=== PATIENT | female | born 1955 | race Caucasian/White ===

== ENCOUNTER → 2022-08-26 | Outpatient (CLI) | payer MEDICARE, BC ==
[~2022-08-26] MED LIST: ATOR1TAB19 PO; CO Q200C10 PO; ECHI125T PO; ESTR3TA PO; JANU50TA8 PO; LISI20TA35 PO; OYST500T8 PO; PRES10CA2 PO; TOLT4CAP3 PO; VITMTA PO
== END ==
LOC: M LABSMTC 10:14
PROVIDERS: ATTEND Anesthesiology
DX: Z01.812 Encounter for preprocedural laboratory examination (principal)

== ENCOUNTER 2022-08-31 08:43 | Day surgery (SDC) | payer MEDICARE, BC ==
[~2022-08-31] VITALS: Ht 167.6 cm; Wt 78.8 kg
[~2022-08-31 08:43] MED LIST changes: +NS 1,000 ML IV ONE
[2022-08-31] MEDS ORDERED: ESTR1TAB PO (09:19)
[2022-08-31] MEDS ORDERED: DITR1TAB PO (09:19)
[2022-08-31] MEDS ORDERED: ARED (09:19)
[2022-08-31] MEDS ORDERED: LIDOCAINE 2% 100MG/5ML SDV (FOR ANES.) As Ordered ONE (09:42)
[2022-08-31] MEDS ORDERED: propofoL 200 MG/20 ML VIAL As Ordered ONE (09:42)
[2022-08-31 11:30] VITALS: BP 197/87
== END 2022-08-31 11:47 | disposition home or self-care (01) ==
LOC: M OPP 08:43
PROVIDERS: ATTEND Internal Medicine Gastroenterology
DX: Z12.11 Encounter for screening for malignant neoplasm of colon (principal); D12.6 Benign neoplasm of colon, unspecified; K57.30 Diverticulosis of large intestine without perforation or abscess without bleeding; K64.0 First degree hemorrhoids; R32 Unspecified urinary incontinence; I10 Essential (primary) hypertension; E11.9 Type 2 diabetes mellitus without complications; Z79.02 Long term (current) use of antithrombotics/antiplatelets; Z79.84 Long term (current) use of oral hypoglycemic drugs; Z79.890 Hormone replacement therapy; Z79.899 Other long term (current) drug therapy; Z88.0 Allergy status to penicillin; Z88.1 Allergy status to other antibiotic agents; Z88.2 Allergy status to sulfonamides; Z88.6 Allergy status to analgesic agent; Z91.048 Other nonmedicinal substance allergy status